=== PATIENT | male | born 1970 | race Caucasian/White ===

== ENCOUNTER 2018-12-03 11:19 | Emergency (ER) | payer OTHER ==
[2018-12-03] MEDS ORDERED: IBUPROFEN 600 MG TAB PO ONE (11:36)
--- NOTE | 2018-12-03 11:42 | EDPHY ---
H & P Time Seen by Provider: 12/03/18 11:36 HPI/ROS: CHIEF COMPLAINT: Right ankle pain HISTORY OF PRESENT ILLNESS: Patient is a 48-year-old male who presents emergency department with right ankle pain. The patient tripped over a step twisting his ankle last evening. He now has increasing swelling. His pain is moderate. It is worse with ambulation. No numbness or tingling. Patient did not sustain any other injury. No previous ankle injury. REVIEW OF SYSTEMS: Negative Past Medical/Surgical History: Noncontributory Social: Patient smokes Smoking Status: Heavy smoker Physical Exam: Vitals noted General Appearance: Alert and no distress. Head: Pupils equal. Normal. Respiratory: No respiratory distress. Cardiac: regular rate and rhythm. RLE: Patient has no proximal right leg tenderness palpation. Patient has tenderness palpation over both his medial and lateral malleolus. There is no skin breakdown. Moderate ankle swelling. No foot tenderness to palpation. Neurovascular intact distally. Patient's other extremities are normal appearing. Skin: No rashes or lesions. Neuro: Alert. Normal mood and affect. Constitutional: Initial Vital Signs Temperature (C) 36.8 C 12/03/18 11:29 Heart Rate 94 12/03/18 11:29 Respiratory Rate 16 12/03/18 11:29 Blood Pressure 127/87 H 12/03/18 11:29 O2 Sat (%) 93 12/03/18 11:29 O2 Delivery Mode Room Air Allergies/Adverse Reactions: No Known Allergies Allergy (Verified 12/03/18 11:29) Home Medications: Medication Instructions Recorded NK [No Known Home Meds] 12/03/18 Medical Decision Making ED Course/Re-evaluation: In the emergency department I discussed possible etiologies with the patient. I answered all his questions. He consented to an x-ray of his right ankle. He was given ibuprofen. Right ankle x-ray: Please refer the dictated report. Patient has a distal fibular fracture. I discussed the results with the patient. I answered all his questions. He was placed in a Russ boot and given crutches. He will follow up with Orthopedics. He is given warnings prior to leaving. Post Russ placement the patient was neurovascular intact distally Differential Diagnosis: My differential includes but is not limited to fracture, dislocation, contusion , sprain, strain - Data Points Medications Given: Discontinued Medications Ibuprofen (Motrin) 600 mg PO EDNOW ONE Stop: 12/03/18 11:37 Last Admin: 12/03/18 11:40 Dose: 600 mg Departure - Departure Disposition: Home, Routine, Self-Care Clinical Impression: Injury of ankle Qualifiers: Encounter type: initial encounter Laterality: right Qualified Code(s): S99.911A - Unspecified injury of right ankle, initial encounter Fibula fracture Qualifiers: Encounter type: initial encounter Fibula location: distal Fracture type: closed Fracture morphology: unspecified fracture morphology Laterality: right Qualified Code(s): S82.831A - Other fracture of upper and lower end of right fibula, initial encounter for closed fracture Condition: Good Instructions: Ankle Fracture (ED) Additional Instructions: You broke your distal fibula. You need follow-up with Orthopedics. Use your splint and crutches as needed. Referrals: Anthony Donohue MD [Medical Doctor] - 5-7 days, call for appt.
[2018-12-03 13:13] VITALS: BP 117/84
== END 2018-12-03 13:05 | disposition home or self-care (01) ==
LOC: CED 11:19
DX: S82.831A Other fracture of upper and lower end of right fibula, initial encounter for closed fracture (principal); S99.911A Unspecified injury of right ankle, initial encounter; W18.40XA Slipping, tripping and stumbling without falling, unspecified, initial encounter
CPT/HCPCS: 73610-PO; 99283-ER